=== PATIENT | male | born 1965 | race Caucasian/White ===

== ENCOUNTER 2022-04-18 00:40 | Emergency (ER) | payer SELFPAY ==
[~2022-04-18] VITALS: Ht 177.8 cm; Wt 114.0 kg
[2022-04-18 00:44] VITALS: BP 137/65
[2022-04-18] MEDS ORDERED: IPRATROPIUM BROMIDE (0.02%) 0.5MG/2.5ML NEB HHN STA (02:10)
[2022-04-18] MEDS ORDERED: ALBUTEROL (0.083%) 2.5MG/3ML NEB HHN STA (02:10)
[2022-04-18] MEDS ORDERED: BENZ100C86 MT (04:37)
[2022-04-18] MEDS ORDERED: TAM75 MT (04:37)
[2022-04-18] MEDS ORDERED: BENZONATATE 100MG CAPSULE PO NR (04:45)
== END 2022-04-18 05:00 | disposition home or self-care (01) ==
LOC: ER 00:40
DX: U07.1 COVID-19 (principal); R05.9 Cough, unspecified; R50.9 Fever, unspecified
CPT/HCPCS: 71045; 87426; 87804; 99284; C9803; Z7610